=== PATIENT | female | born 1955 | race Caucasian/White ===

== ENCOUNTER 2016-06-14 11:34 | Inpatient (IN) | payer MEDICARE, MEDICAID ==
[~2016-06-14] VITALS: Ht 162.6 cm; Wt 61.2 kg
[2016-06-14] MEDS ORDERED: CEFTRIAXONE 1 GM VIAL ONE (13:23)
[2016-06-14] MEDS ORDERED: AZITHROMYCIN 500 MG VIAL IV ONE (13:23)
[2016-06-14] MEDS ORDERED: KETOROLAC 30 MG/ML VIAL ONE (13:24)
[2016-06-14] MEDS ORDERED: SODIUM CHLORIDE 0.9% 250 ML IV ONE (13:24)
[2016-06-14] MEDS ORDERED: SODIUM CHLORIDE 0.9% 100 ML IV ONE (13:24)
[2016-06-14] MEDS ORDERED: BISACODYL 10 MG SUPP RECTAL PRN (13:50)
[2016-06-14] MEDS: CEFTRIAXONE 1 GM in SODIUM CHLORIDE 0.9% 50 ML IV SCH (13:50)
[2016-06-14] MEDS ORDERED: BISACODYL EC 5 MG TAB PO PRN (13:50)
[2016-06-14] MEDS: ENOXAPARIN 40 MG/0.4 ML SYR SUBQ SCH (13:50)
[2016-06-14] MEDS ORDERED: ALU/MAG/SIM 30 ML UDC PO PRN (13:50)
[2016-06-14] MEDS ORDERED: SALINE FLUSH 10 ML FLUSH PRN (13:50)
[2016-06-14] MEDS ORDERED: MAG HYDROX 30 ML UDC PO PRN (13:50)
[2016-06-14] MEDS: AZITHROMYCIN 500 MG in SODIUM CHLORIDE 0.9% 250 ML IV SCH (13:50)
[2016-06-14] MEDS ORDERED: DILAUDID 1 MG/ML AMP ONE (14:11)
[2016-06-14] MEDS ORDERED: DUONEB INH ONE ×2 (14:15)
[2016-06-14 14:51] VITALS: Ht 162.6 cm; Wt 61.2 kg
[2016-06-14 14:54] VITALS: BP_SYST 118; BP_SYST 122; RESP 20; TEMP 98.2
[2016-06-14] MEDS: NEB-XOPENEX 1.25 MG/3 ML INH SCH ×3 (15:55→22:42)
[2016-06-14 15:58] VITALS: RESP 16
[2016-06-14] MEDS ORDERED: PNEUMO VAC 25 MCG/0.5 ML VL IM.VACC ONE (17:55)
[2016-06-14 19:53] VITALS: BP_SYST 102; RESP 18; TEMP 97.5
[2016-06-14] MEDS: ZOLPIDEM 5 MG TAB PO SCH (21:35)
[2016-06-14] MEDS ORDERED: MISSING DOSE XX ONE (21:35)
[2016-06-14] MEDS: PAROXETINE HCL 20 MG TAB PO SCH (21:35)
[2016-06-14] MEDS: SALINE FLUSH 10 ML FLUSH SCH (21:36)
[2016-06-14 22:40] VITALS: BP_SYST 126; RESP 18; TEMP 97.7
[2016-06-14] MEDS: ROSUVASTATIN 20 MG TAB PO SCH (23:03)
[2016-06-15 03:54] VITALS: BP_SYST 135; RESP 20; TEMP 98.3
[2016-06-15] MEDS: SODIUM CHLORIDE 0.9% FLUSH BAG 500 ML IV SCH (05:50)
[2016-06-15] MEDS: NEB-XOPENEX 1.25 MG/3 ML INH SCH ×3 (06:46→18:12)
[2016-06-15 07:38] VITALS: BP_SYST 112; RESP 18; TEMP 98.1
[2016-06-15] MEDS: *HOME MEDS KEPT IN PHARMACY XX SCH ×2 (08:00→20:00)
[2016-06-15] MEDS: LUBIPROSTONE 8 MCG CAP PO SCH (09:14)
[2016-06-15] MEDS: SALINE FLUSH 10 ML FLUSH SCH ×2 (09:14→20:23)
[2016-06-15] MEDS: PAROXETINE HCL 20 MG TAB PO SCH (09:14)
[2016-06-15] MEDS: CEFTRIAXONE 1 GM in SODIUM CHLORIDE 0.9% 50 ML IV SCH (09:15)
[2016-06-15] MEDS: ENOXAPARIN 40 MG/0.4 ML SYR SUBQ SCH (09:16)
[2016-06-15] MEDS ORDERED: KCL CR 20 MEQ TAB PO ONE (10:15)
[2016-06-15] MEDS: AZITHROMYCIN 500 MG in SODIUM CHLORIDE 0.9% 250 ML IV SCH (10:44)
[2016-06-15 12:00] VITALS: BP_SYST 118; RESP 18; TEMP 98.2
[2016-06-15] MEDS: Ibuprofen 400 MG TAB PO PRN (14:35)
[2016-06-15 15:28] VITALS: BP_SYST 140; RESP 18; TEMP 98.6
[2016-06-15 19:50] VITALS: BP_SYST 110; RESP 18; TEMP 98.4
[2016-06-15] MEDS: ROSUVASTATIN 20 MG TAB PO SCH (20:24)
[2016-06-15] MEDS: ZOLPIDEM 5 MG TAB PO SCH (20:24)
[2016-06-15 23:33] VITALS: BP_SYST 115; RESP 16; TEMP 97.9
[2016-06-16] MEDS: NEB-XOPENEX 1.25 MG/3 ML INH SCH ×5 (00:20→23:47)
[2016-06-16 03:32] VITALS: BP_SYST 123; RESP 16; TEMP 97.8
[2016-06-16] MEDS: SODIUM CHLORIDE 0.9% FLUSH BAG 500 ML IV SCH (05:47)
[2016-06-16 07:59] VITALS: BP_SYST 134; RESP 16; TEMP 98.4
[2016-06-16] MEDS: *HOME MEDS KEPT IN PHARMACY XX SCH ×2 (08:00→20:00)
[2016-06-16] MEDS ORDERED: AZITHROMYCIN 250 MG TAB PO SCH (09:00)
[2016-06-16] MEDS: CEFTRIAXONE 1 GM in SODIUM CHLORIDE 0.9% 50 ML IV SCH (09:10)
[2016-06-16] MEDS: LUBIPROSTONE 8 MCG CAP PO SCH (09:10)
[2016-06-16] MEDS: PAROXETINE HCL 20 MG TAB PO SCH (09:10)
[2016-06-16] MEDS: Ibuprofen 400 MG TAB PO PRN ×2 (09:11→19:58)
[2016-06-16] MEDS: ENOXAPARIN 40 MG/0.4 ML SYR SUBQ SCH (09:12)
[2016-06-16] MEDS: SALINE FLUSH 10 ML FLUSH SCH ×2 (10:53→19:58)
[2016-06-16 11:33] VITALS: BP_SYST 109; RESP 18; TEMP 98.4
[2016-06-16 16:21] VITALS: BP_SYST 136; RESP 20; TEMP 97.4
[2016-06-16] MEDS ORDERED: MISSING DOSE XX ONE (19:45)
[2016-06-16 19:54] VITALS: BP_SYST 136; RESP 18; TEMP 97.8
[2016-06-16] MEDS: ROSUVASTATIN 20 MG TAB PO SCH (19:57)
[2016-06-16] MEDS: ZOLPIDEM 5 MG TAB PO SCH (22:01)
[2016-06-16 23:17] VITALS: BP_SYST 121; RESP 18; TEMP 98.6
[2016-06-17 03:20] VITALS: BP_SYST 118; RESP 16; TEMP 98.5
[2016-06-17] MEDS: NEB-XOPENEX 1.25 MG/3 ML INH SCH ×3 (06:03→18:40)
[2016-06-17] MEDS: SODIUM CHLORIDE 0.9% FLUSH BAG 500 ML IV SCH (06:22)
[2016-06-17 07:58] VITALS: BP_SYST 123; RESP 16; TEMP 98.6
[2016-06-17] MEDS: *HOME MEDS KEPT IN PHARMACY XX SCH ×2 (08:00→20:00)
[2016-06-17] MEDS: SALINE FLUSH 10 ML FLUSH SCH ×2 (08:31→21:44)
[2016-06-17] MEDS: CEFTRIAXONE 1 GM in SODIUM CHLORIDE 0.9% 50 ML IV SCH (08:31)
[2016-06-17] MEDS: LUBIPROSTONE 8 MCG CAP PO SCH (08:31)
[2016-06-17] MEDS: PAROXETINE HCL 20 MG TAB PO SCH (08:31)
[2016-06-17] MEDS: ENOXAPARIN 40 MG/0.4 ML SYR SUBQ SCH (08:32)
[2016-06-17 11:42] VITALS: BP_SYST 117; RESP 16; TEMP 98.6
[2016-06-17 15:21] VITALS: BP_SYST 138; RESP 16; TEMP 98.9
[2016-06-17 19:13] VITALS: BP_SYST 123; RESP 16; TEMP 98
[2016-06-17] MEDS ORDERED: MISSING DOSE XX ONE (20:15)
[2016-06-17] MEDS: ROSUVASTATIN 20 MG TAB PO SCH (21:44)
[2016-06-17] MEDS: ZOLPIDEM 5 MG TAB PO SCH (22:21)
[2016-06-17 23:33] VITALS: BP_SYST 118; RESP 16; TEMP 98.6
[2016-06-18] MEDS: NEB-XOPENEX 1.25 MG/3 ML INH SCH ×3 (00:09→11:30)
[2016-06-18 03:00] VITALS: BP_SYST 122; RESP 16; TEMP 98.3
[2016-06-18] MEDS: SODIUM CHLORIDE 0.9% FLUSH BAG 500 ML IV SCH (05:44)
[2016-06-18 07:12] VITALS: BP_SYST 119; RESP 16; TEMP 98.7
[2016-06-18] MEDS: *HOME MEDS KEPT IN PHARMACY XX SCH (08:00)
[2016-06-18] MEDS: ENOXAPARIN 40 MG/0.4 ML SYR SUBQ SCH (09:34)
[2016-06-18] MEDS: PAROXETINE HCL 20 MG TAB PO SCH (09:35)
[2016-06-18] MEDS: CEFTRIAXONE 1 GM in SODIUM CHLORIDE 0.9% 50 ML IV SCH (09:35)
[2016-06-18] MEDS: LUBIPROSTONE 8 MCG CAP PO SCH (09:35)
[2016-06-18] MEDS: SALINE FLUSH 10 ML FLUSH SCH (09:36)
[2016-06-18] MEDS: Ibuprofen 400 MG TAB PO PRN ×2 (09:40→11:12)
[2016-06-18 11:09] VITALS: BP_SYST 114; RESP 18; TEMP 98.2
[2016-06-18 11:14] VITALS: BP_SYST 119; RESP 16; TEMP 98.7
[2016-06-18] MEDS ORDERED: MISSING DOSE XX ONE (11:55)
== END 2016-06-18 12:39 | disposition home or self-care (01) | DRG 190 ==
LOC: ENRESERVTM → ENRESERVDT → ER 11:34 → ENPENDDIS 14:07 → EMR 14:07 → 4THE 14:46
PROVIDERS: ADMIT Internal Medicine; ATTEND Internal Medicine
DX: J44.0 Chronic obstructive pulmonary disease with (acute) lower respiratory infection (principal); J18.9 Pneumonia, unspecified organism; J44.1 Chronic obstructive pulmonary disease with (acute) exacerbation; R09.02 Hypoxemia; E78.5 Hyperlipidemia, unspecified; M51.36 Other intervertebral disc degeneration, lumbar region; F17.210 Nicotine dependence, cigarettes, uncomplicated; F41.9 Anxiety disorder, unspecified
CPT/HCPCS: 71010; 80053; 82553; 82947; 83605; 83880; 84145; 84484; 85025; 87040; 87804; 90732; 93005; 94640; 94799; 96365; 96367; 96375